=== PATIENT | female | born 1975 | race Two or more races ===

== ENCOUNTER 2017-10-12 03:18 | Emergency (ER) | payer MEDICAID ==
[~2017-10-12] VITALS: Ht 167.6 cm; Wt 86.2 kg
[2017-10-12 03:37] VITALS: BP 110/73
[2017-10-12] MEDS ORDERED: cefTRIAXone SOD 1,000 MG VL IM ONE (06:45)
== END 2017-10-12 07:16 | disposition home or self-care (01) ==
LOC: ER 03:21
DX: J03.90 Acute tonsillitis, unspecified (principal); J45.909 Unspecified asthma, uncomplicated; Z88.0 Allergy status to penicillin
CPT/HCPCS: 96372; 99283; J0696

== ENCOUNTER 2018-06-11 07:56 | Emergency (ER) | payer MEDICAID ==
[~2018-06-11] VITALS: Ht 167.6 cm; Wt 86.2 kg
[2018-06-11 08:54] LABS: Basophils # (auto) 0 uL; Eosinophils # (auto) 0.2 uL; Neutrophils # (auto) 4.2 uL; White Blood Cell 6.6 10^3/uL (4.4-10.8)
[2018-06-11 08:57] LABS: Basophils % (auto) 0.3 % (0.0-2.0); Eosinophils % (auto) 2.5 % (0.0-7.0); Hematocrit 34.4 % (36.0-46.0); Hemoglobin 11.4 g/dL (12.2-16.2); Lymphocytes # (auto) 1.8 uL; Lymphocytes % (auto) 27.6 % (10.0-50.0); Mean Corpuscular Hemoglobin 25.4 pg (28.0-32.0); Mean Corpuscular Hgb Conc. 33.1 g/dL (32.0-36.0); Mean Corpuscular Volume 76.6 fL (80.0-100.0); Monocytes # (auto) 0.4 uL; Monocytes % (auto) 5.5 % (0.0-12.0); Neutrophils % (auto) 64.1 % (37.0-80.0); Nucleated Red Blood Cells % 0.1 %; Platelet Count (auto) 274 10^3/uL (140-450); Red Blood Cells 4.49 10^6/uL (4.0-5.20); Red Cell Distribution Width 15.7 % (11.8-14.3)
[2018-06-11 09:15] LABS: Albumin 3.9 g/dL (3.4-5.0); BUN/Creatinine Ratio 17.9; Bilirubin, Total 0.2 mg/dL (0.2-1.0); Calcium 8.2 mg/dL (8.5-10.1); Potassium 3.8 mmol/L (3.5-5.1); Total Protein 7.6 g/dL (6.4-8.2)
[2018-06-11] MEDS: SODIUM CHLORIDE 0.9% 1,000 ML IVB ONE (09:37)
[2018-06-11] MEDS: MORPHINE SULFATE 4 MG/ML SYR/VIAL IV ONE (09:40)
[2018-06-11] MEDS: ONDANSETRON HCL 4 MG/2 ML VIAL IV ONE (09:40)
[2018-06-11] MEDS: PANTOPRAZOLE 40 MG/10 ML VIAL IV STA (09:41)
[2018-06-11 09:45] VITALS: BP 115/74
[2018-06-11] MEDS: DIPHENOXYLATE W/ATROPINE 2.5 MG TAB PO ONE (10:29)
== END 2018-06-11 10:50 | disposition home or self-care (01) ==
LOC: ER 07:56
DX: K29.00 Acute gastritis without bleeding (principal); J45.909 Unspecified asthma, uncomplicated; Z88.0 Allergy status to penicillin
CPT/HCPCS: 36415; 76705; 80053; 81025; 82150; 83690; 85025; 94761; 96361; 96374; 96375; 99285; C9113; J2270; J2405; J7030

== ENCOUNTER 2020-04-19 19:11 | Emergency (ER) | payer MEDICAID ==
[~2020-04-19] VITALS: Ht 167.6 cm; Wt 84.4 kg
[2020-04-19 21:22] VITALS: BP 149/94
== END 2020-04-19 22:35 | disposition home or self-care (01) ==
LOC: ER 19:11
DX: R06.02 Shortness of breath (principal); Z20.828 Contact with and (suspected) exposure to other viral communicable diseases
CPT/HCPCS: 71045; 93005

== ENCOUNTER 2020-12-15 04:10 | Emergency (ER) | payer MEDICAID ==
[~2020-12-15] VITALS: Ht 167.6 cm; Wt 90.7 kg
[2020-12-15 04:43] LABS: Urine Bacteria FEW /hpf (None Seen); Urine Blood Negative /uL (Negative); Urine Mucus FEW (None Seen); Urine WBC 1 /hpf (0 - 5)
[2020-12-15] MEDS ORDERED: ONDANSETRON HCL 4 MG/2 ML VIAL IV ONE ×2 (05:00→10:00)
[2020-12-15] MEDS ORDERED: MORPHINE SULFATE 4 MG/ML SYR/VIAL IV ONE (05:00)
[2020-12-15 05:27] LABS: Basophils # (auto) 0 10 ^3/uL (0-0.2); Basophils % (auto) 0.4 % (0.0-2.0); Eosinophils # (auto) 0.1 10 ^3/uL (0-0.8); Eosinophils % (auto) 1.6 % (0.0-7.0); Hematocrit 32.7 % (36.0-46.0); Hemoglobin 10.8 g/dL (12.2-16.2); Lymphocytes # (auto) 1.6 10 ^3/uL (0.4-5.4); Lymphocytes % (auto) 20.8 % (10.0-50.0); Mean Corpuscular Hemoglobin 24.2 pg (28.0-32.0); Mean Corpuscular Hgb Conc. 32.9 g/dL (32.0-36.0); Mean Corpuscular Volume 73.7 fL (80.0-100.0); Monocytes # (auto) 0.5 10 ^3/uL (0-1.3); Monocytes % (auto) 6.5 % (0.0-12.0); Neutrophils # (auto) 5.3 10 ^3/uL (1.6-8.6); Neutrophils % (auto) 70.7 % (37.0-80.0); Nucleated Red Blood Cells % 0.1 %; Platelet Count (auto) 297 10^3/uL (140-450); Red Blood Cells 4.44 10^6/uL (4.0-5.20); Red Cell Distribution Width 15.9 % (11.8-14.3); White Blood Cell 7.5 10^3/uL (4.4-10.8)
[2020-12-15 05:45] LABS: Calcium 8.8 mg/dL (8.5-10.1)
[2020-12-15 05:49] LABS: BUN/Creatinine Ratio 22.1; Bilirubin, Total 0.5 mg/dL (0.2-1.0); Total Protein 7.6 g/dL (6.4-8.2)
[2020-12-15] MEDS ORDERED: SODIUM CHLORIDE 0.9% 1,000 ML IV ONE (07:00)
[2020-12-15] MEDS ORDERED: PIPERACILLIN-TAZOB 3.375GM 100 ML IV ONE (08:30)
[2020-12-15] MEDS ORDERED: levoFLOXacin 500MG 100 ML IV ONE (09:15)
[2020-12-15 09:55] VITALS: BP 125/75
== END 2020-12-15 10:53 | disposition home or self-care (01) ==
LOC: ER 04:10
DX: K80.20 Calculus of gallbladder without cholecystitis without obstruction (principal); J45.909 Unspecified asthma, uncomplicated; Z88.0 Allergy status to penicillin
CPT/HCPCS: 36415; 74176; 76705; 80053; 81001; 83605; 83690; 85025; 87040; 93005; 96361; 96365; 96375; 96376; 99285; J1956; J2270; J2405; J2543; J7030

== ENCOUNTER 2021-01-20 07:47 | Emergency (ER) | payer MEDICAID ==
[~2021-01-20] VITALS: Ht 167.6 cm; Wt 90.7 kg
[2021-01-20] MEDS ORDERED: SODIUM CHLORIDE 0.9% 1,000 ML IV ONE ×2 (08:00)
[2021-01-20] MEDS ORDERED: MORPHINE SULFATE 4 MG/ML SYR/VIAL IV ONE (08:00)
[2021-01-20] MEDS ORDERED: ONDANSETRON HCL 4 MG/2 ML VIAL IV ONE (08:00)
[2021-01-20] MEDS ORDERED: LORazepam 2MG/ML-1ML VIAL ONE (08:03)
[2021-01-20] MEDS ORDERED: LORazepam 2MG/ML-1ML VIAL IV ONE (08:15)
[2021-01-20 08:49] LABS: Albumin 4.1 g/dL (3.4-5.0); Anion Gap 11 (5-15); Blood Urea Nitrogen 12 mg/dL (7-18); Calcium 8.5 mg/dL (8.5-10.1); Carbon Dioxide 22 mmol/L (21-32); Chloride 105 mmol/L (98-107); Eosinophils # (auto) 0.1 10 ^3/uL (0-0.8); Glucose 131 mg/dL (74-106); Magnesium 2.1 mg/dL (1.6-2.6); Potassium 3.4 mmol/L (3.5-5.1); Sodium 138 mmol/L (136-145)
[2021-01-20 08:50] LABS: Basophils # (auto) 0.1 10 ^3/uL (0-0.2); Basophils % (auto) 0.4 % (0.0-2.0); Hematocrit 33.8 % (36.0-46.0); Hemoglobin 10.7 g/dL (12.2-16.2); Lymphocytes # (auto) 2.5 10 ^3/uL (0.4-5.4); Lymphocytes % (auto) 19.6 % (10.0-50.0); Mean Corpuscular Hemoglobin 22.8 pg (28.0-32.0); Mean Corpuscular Hgb Conc. 31.6 g/dL (32.0-36.0); Mean Corpuscular Volume 72.2 fL (80.0-100.0); Monocytes # (auto) 0.6 10 ^3/uL (0-1.3); Monocytes % (auto) 4.9 % (0.0-12.0); Neutrophils # (auto) 9.3 10 ^3/uL (1.6-8.6); Neutrophils % (auto) 74.1 % (37.0-80.0); Platelet Count (auto) 307 10^3/uL (140-450); Red Blood Cells 4.68 10^6/uL (4.0-5.20); Red Cell Distribution Width 15.6 % (11.8-14.3); White Blood Cell 12.6 10^3/uL (4.4-10.8)
[2021-01-20 08:57] LABS: Alanine Aminotransferase 62 U/L (13-56); Alkaline Phosphatase 99 U/L (45-117); Aspartate Aminotransferase 76 U/L (15-37); BUN/Creatinine Ratio 16.7; Bilirubin, Total 0.5 mg/dL (0.2-1.0); GFR African American 114 mL/min; GFR Non-African American 94 mL/min; Lipase 104 U/L (73-393); Total Protein 7.8 g/dL (6.4-8.2)
[2021-01-20] MEDS ORDERED: cefTRIAXone 1GM/50ML D5W 50 ML IV ONE (09:30)
[2021-01-20 10:00] VITALS: BP 117/59
[2021-01-20 10:31] LABS: Urine Bacteria NONE SEEN /hpf (None Seen); Urine Blood Negative /uL (Negative); Urine WBC 1 /hpf (0 - 5)
== END 2021-01-20 11:12 | disposition home or self-care (01) ==
LOC: ER 07:47
DX: K80.20 Calculus of gallbladder without cholecystitis without obstruction (principal); N39.0 Urinary tract infection, site not specified; E86.0 Dehydration; J45.909 Unspecified asthma, uncomplicated; Z88.0 Allergy status to penicillin
CPT/HCPCS: 36415; 70450; 76705; 80053; 81001; 83690; 83735; 84484; 85025; 93005; 96361; 96365; 96375; 99285; J0696; J2060; J2270; J2405; J7030